=== PATIENT | male | born 1985 | race Caucasian/White ===

== ENCOUNTER 2018-03-19 11:45 | Emergency (ER) | payer MEDICAID, OTHER, SELFPAY ==
[~2018-03-19] VITALS: Ht 177.8 cm; Wt 105.1 kg
[2018-03-19 11:46] VITALS: BP 135/75
[2018-03-19] MEDS ORDERED: OXYcodone/APAP 5/325MG TABLET PO ONE (12:30)
[2018-03-19] MEDS ORDERED: HYDROcodone/APAP 5/325 TABLET PO ONE (12:30)
[2018-03-19] MEDS ORDERED: OXYcodone/APAP 5/325MG TABLET ONE (12:45)
== END 2018-03-19 13:31 | disposition home or self-care (01) ==
LOC: ED 13:18
DX: S80.811A Abrasion, right lower leg, initial encounter (principal); L03.115 Cellulitis of right lower limb; V27.4XXA Motorcycle driver injured in collision with fixed or stationary object in traffic accident, initial encounter; Y93.89 Activity, other specified; Y99.8 Other external cause status; Y92.89 Other specified places as the place of occurrence of the external cause
CPT/HCPCS: 99283